=== PATIENT | female | born 1990 | race Caucasian/White ===

== ENCOUNTER 2022-01-06 14:39 | Emergency (ER) | payer OTHER ==
[2022-01-06] MEDS ORDERED: CHERRY SYRUP 10 ML UDC PO ONE (15:02)
[2022-01-06] MEDS ORDERED: DEXAMETHASONE 10 MG/ML VIAL PO STA (15:02)
--- NOTE | 2022-01-06 15:04 | ED Physician Documentation ---
PD HPI PED ILLNESS - Stated complaint Stated Complaint: THROAT SWELLING - Chief complaint Chief Complaint: Heent - History obtained from History obtained from: Patient - Additional information Additional information: Previously healthy 31-year-old woman has been sick for 2 weeks with cough cold and runny nose with significant throat pain over the last few days and she felt like her throat was swelling shut today while running. Review of Systems Constitutional: denies: Fever, Chills Nose: reports: Rhinorrhea / runny nose Throat: reports: Sore throat Respiratory: reports: Cough. denies: Dyspnea PD PAST MEDICAL HISTORY - Present Medications Home Medications: Ambulatory Orders Medication Instructions Recorded Confirmed Penicillin V Potassium 500 mg PO Q6HR #40 tablet 01/06/22 - Allergies Allergies/Adverse Reactions: Allergies Allergy/AdvReac Type Severity Reaction Status Date / Time No Known Drug Allergies Allergy Verified 01/06/22 14:52 PD ED PE NORMAL - Vitals Vital signs reviewed: Yes - General General: Alert and oriented X 3, No acute distress - HEENT HEENT: Other (Large but uninflamed tonsils, normal voice and phonation. Remainder of the oropharyngeal exam is normal. Severe anterior symmetric cervical adenopathy.) - Neck Neck: Supple, no meningeal sign, No bony TTP - Cardiac Cardiac: RRR, No murmur - Respiratory Respiratory: No respiratory distress, Clear bilaterally - Abdomen Abdomen: Non tender - Back Back: No CVA TTP, No spinal TTP - Derm Derm: Normal color, Warm and dry - Extremities Extremities: No edema, No calf tenderness / cord - Neuro Neuro: Alert and oriented X 3, Normal speech Results - Vitals Vitals: Vital Signs - 24 hr 01/06/22 14:47 Temperature 36.7 C Heart Rate 69 Respiratory 16 Rate Blood Pressure 115/74 O2 Saturation 100 Departure - Departure Disposition: 01 Home, Self Care Clinical Impression: Throat swelling Condition: Good Record reviewed to determine appropriate education?: Yes Instructions: ED Tonsillitis Prescriptions: Penicillin V Potassium 500 mg PO Q6HR #40 tablet Comments: Call your doctor to arrange a follow-up appointment, make the next available appointment. In the interim, return anytime if worse or if new symptoms develop.
[2022-01-06 15:20] VITALS: BP 108/68
== END 2022-01-06 15:19 | disposition home or self-care (01) ==
LOC: ED 14:39
DX: R22.1 Localized swelling, mass and lump, neck (principal)
CPT/HCPCS: 99282; A9270